=== PATIENT | female | born 1990 | race Caucasian/White ===

== ENCOUNTER 2019-10-24 02:28 | Outpatient (CLI) | payer MEDICAID, SELFPAY ==
[2019-10-24] VITALS (7 sets, daily range): BP systolic 0–119; BP diastolic 0–72; PULSE 87–91; RESP 16; TEMP 37; BMI 28.6
--- NOTE | 2019-10-24 04:06 | USR_ITS ---
PROCEDURE INFORMATION: Exam: US Retroperitoneal Complete. Exam date and time: 10/24/2019 4:07 AM Age: 29 years old Clinical indication: Abdominal pain; Acute; ; Additional info: Flank pain lt. 20 weeks gestation. TECHNIQUE: Imaging protocol: Real-time ultrasound of the retroperitoneum with image documentation. Complete exam. COMPARISON: No relevant prior studies available. FINDINGS: The right kidney measures 11.3 cm in length. The left kidney measures 12.4 cm in length. There is no mild to moderate left hydronephrosis. It is unusual for hydronephrosis of be unilateral on the left. Therefore, an occult left ureteral calculus or left pyelonephritis should be considered. No right hydronephrosis. No definite perinephric fluid. Neither ureter is obviously visible at this time. The renal parenchymal thickness and echogenicity are within normal limits. There is no sonographically visible renal calculus, mass, or cyst. The urinary bladder appears essentially empty and is not evaluated this time. US/US renal BI* [id number] IMPRESSION: 1. Mild to moderate left hydronephrosis, see above discussion. 2. Other findings discussed above.
[2019-10-24] MEDS: promethazine 25 mg/mL SDV 1 mL IM (04:21)
[2019-10-24 05:30] LABS: Amphetamines Screen Urine Negative (Negative); Barbiturates Screen Urine Negative (Negative); Benzodiazepines Screen Urine Negative (Negative); Cocaine Screen Urine Negative (Negative); Opiate Screen Urine Negative (Negative); PCP Screen Urine Negative (Negative)
[2019-10-24 05:31] LABS: Add Urine Microscopic? YES; Bilirubin Urine Neg (NEGATIVE); Blood Urine 3+ (Negative); Glucose Urine UA Norm (Normal); Ketones Urine Negative (Negative); Leukocyte Esterase Urine 1+ (Negative); Nitrate Urine Negative (Negative); Protein Urine Neg (Negative); Urine Appearance Cloudy (CLEAR); Urine Color Yellow (Yellow); Urobilinogen Urine Norm (Negative); pH Urine 5 (5-7)
[2019-10-24 05:32] LABS: THC Screen Urine Negative (Negative)
[2019-10-24 05:38] LABS: RBC Urine >100 /hpf (0-2)
[2019-10-24 05:39] LABS: Add Urine Culture? Yes; Bacteria Urine 1+; Squamous Epithelial Cell Urine 0-4 (0-5); WBC Urine 25-40 /hpf (0-5)
[2019-10-24] MEDS: fentaNYL 50 mcg/mL INJ 2mL IVP (06:30)
[2019-10-24 06:41] LABS: Anion Gap 13.1 (5-19); Blood Urea Nitrogen 12 mg/dL (6-20); Calcium 9.3 mg/Dl (8.6-10.0); Carbon Dioxide 22 mmol/L (22-29); Chloride 102 mmol/L (98-107); Glomerular Filtration Rate 99.6 mL/min (90-130); Glucose 138 mg/dL (74-109); Potassium 4.1 mmol/L (3.5-5.1); Sodium 133 mmol/L (136-145)
== END 2019-10-24 06:27 | disposition home or self-care (01) ==
LOC: OPOB 02:41 → OBGYN 06:22 → OPOB 10-25 17:43
PROVIDERS: Family Provider Family Medicine; Visit Provider Family Medicine
DX: O26.899 Other specified pregnancy related conditions, unspecified trimester (principal); Z3A.00 Weeks of gestation of pregnancy not specified; M54.5 Low back pain; R10.9 Unspecified abdominal pain
CPT/HCPCS: 36415; 76770; 80048; 80307; 81003; 87086; 96372; 96375; 99211; J2550; J3010